=== PATIENT | male | born 1965 | race African-American/Black ===

== ENCOUNTER 2017-06-25 03:56 | Emergency (ER) | payer MEDICARE, MEDICAID ==
[~2017-06-25] VITALS: Ht 177.8 cm; Wt 105.0 kg
[2017-06-25] MEDS ORDERED: CLONIDINE 0.2MG TABLET PO ONE (06:45)
[2017-06-25] MEDS ORDERED: AZITHROMYCIN 500 MG TABLET PO ONE (06:45)
[2017-06-25] MEDS ORDERED: CEFTRIAXONE SODIUM 250 MG/VIAL IM ONE (06:45)
[2017-06-25 07:04] LABS: CLARITY URINE CLEAR (CLEAR); COLOR URINE YELLOW (YELLOW); KETONES URINE NEGATIVE (NEGATIVE); LEUKOCYTE ESTERASE URINE TRACE (NEGATIVE); NITRITE URINE NEGATIVE (NEGATIVE); OCCULT BLOOD URINE NEGATIVE (NEGATIVE); PROTEIN URINE NEGATIVE (NEGATIVE); SPECIFIC GRAVITY URINE 1.022 (1.005-1.030)
[2017-06-25] MEDS ORDERED: LIDOCAINE HCL 1% 20ML VIAL (Pyxis) INJ INFIL ONE (07:15)
[2017-06-25 07:44] VITALS: BP 152/102
[2017-06-29 04:12] LABS: CHLAMYDIA TRACHOMATIS NAA Negative (Negative); NEISSERIA GONORRHOEAE NAA Negative (Negative)
== END 2017-06-25 08:10 | disposition home or self-care (01) ==
LOC: ER 04:12
DX: B35.6 Tinea cruris (principal); R53.1 Weakness; I10 Essential (primary) hypertension; Z86.73 Personal history of transient ischemic attack (TIA), and cerebral infarction without residual deficits
CPT/HCPCS: 81003; 87491; 87591; 96372; 99284; J0696; J3490

== ENCOUNTER 2019-04-17 17:29 | Emergency (ER) | payer MEDICARE, MEDICAID ==
[~2019-04-17] VITALS: Ht 177.8 cm; Wt 107.0 kg
[2019-04-17] MEDS ORDERED: IBUPROFEN 600MG TABLET PO ONE (21:45)
[2019-04-17 21:46] VITALS: BP 139/91
== END 2019-04-17 22:01 | disposition home or self-care (01) ==
LOC: ER 17:53
DX: B02.9 Zoster without complications (principal); I10 Essential (primary) hypertension
CPT/HCPCS: 99282; 99283